=== PATIENT | female | born 1990 | race Caucasian/White ===

== ENCOUNTER 2017-05-28 00:13 | Emergency (ER) | payer BC ==
[~2017-05-28] VITALS: Ht 170.2 cm; Wt 64.0 kg
[~2017-05-28 00:13] MED LIST: ATARAX,VISTARIL25 MG PO; BENTYL20 MG PO; CYMBALTA30 MG PO; DICLOFENAC POTA50 MG; ESCITALOPRAM OX10 MG PO; METAXALONE800 MG PO; NAPROSYN500 MG PO; ORTHO TRI-CYCL1 EACH PO; PROTONIX40 MG PO; ZOFRAN4 MG PO
[2017-05-28 00:55] LABS: HEMATOCRIT 36.5 % (36.0-46.0); MCH 31.2 PG (29.0-34.0); MCHC 34.5 G/DL (30.0-36.0); MCV 90.3 FL (83-99); MEAN PLAT.VOLUME 9.9 uM^3 (9.5-12.4); PLATELET COUNT 340 K/uL (156-360); RBC DIS.WIDTH-CV 11.6 % (11.8-14.6); RBC DIS.WIDTH-SD 38.5 % (39-53); RED BLOOD COUNT 4.04 M/uL (3.80-5.20); WHITE BLOOD COUNT 10.7 K/uL (4.1-10.2)
[2017-05-28 01:21] LABS: CHLORIDE 103 mEq/L (99-109); POTASSIUM 4.4 mEq/L (3.7-5.4); SODIUM 138 mEq/L (136-147)
[2017-05-28 01:24] LABS: GLUCOSE 118 mg/dL (70-99)
[2017-05-28 01:25] LABS: ANION GAP 11 MEQ/L (2-14); TOTAL BILIRUBIN 0.9 mg/dL (0.0-1.0)
[2017-05-28 01:27] LABS: ALKALINE PHOSPHATASE 107 IU/L (3-129); GFR ESTIMATE (CALCULATED) > 59 mL/min/
[2017-05-28 01:28] LABS: UREA NITROGEN (BUN) 5 mg/dL (9-23)
[2017-05-28 01:29] LABS: DIRECT BILIRUBIN 0.3 mg/dL (0.0-0.3)
[2017-05-28 01:31] LABS: LIPASE 10 U/L (1.0-51.0)
[2017-05-28 01:37] LABS: QUANTITATIVE HCG < 4.0 MIU/ML
[2017-05-28] MEDS ORDERED: PROMETHAZINE HC25 M1 PO (02:09)
[2017-05-28 02:18] VITALS: BP 138/87
== END 2017-05-28 02:37 | disposition home or self-care (01) ==
LOC: EME 00:13 → RME 00:13
DX: R11.2 Nausea with vomiting, unspecified (principal); K31.84 Gastroparesis
CPT/HCPCS: 80048; 80076; 81003; 83690; 84702; 85027; 99281; 99285; J2405; J7030